=== PATIENT | female | born 1995 | race American Indian/Alaskan Native ===

== ENCOUNTER 2019-04-13 22:29 | Emergency (ER) | payer OTHER ==
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
== END 2019-04-14 02:00 | disposition home or self-care (01) ==
LOC: FB.ED 22:29
DX: O99.345 Other mental disorders complicating the puerperium (principal); F53.0 Postpartum depression
CPT/HCPCS: 99284